=== PATIENT | female | born 1950 | race Two or more races ===

== ENCOUNTER 2018-01-05 10:12 | Outpatient (CLI) | payer OTHER ==
[~2018-01-05 10:12] MED LIST: CALTRATE 600600 MG PO; PROTONIX20 MG PO
== END 2018-01-05 10:17 | disposition home or self-care (01) ==
LOC: MAMO-SONO 10:12
DX: N63.10 Unspecified lump in the right breast, unspecified quadrant (principal); N63.20 Unspecified lump in the left breast, unspecified quadrant; R52 Pain, unspecified; M54.6 Pain in thoracic spine

== ENCOUNTER → 2018-02-02 | Emergency (ER) | payer OTHER ==
[~2018-02-02] VITALS: Ht 160 cm; Wt 63.5 kg
== END | disposition home or self-care (01) ==
LOC: ER 21:05
DX: S70.02XA Contusion of left hip, initial encounter (principal); S90.32XA Contusion of left foot, initial encounter; S80.12XA Contusion of left lower leg, initial encounter; S93.402A Sprain of unspecified ligament of left ankle, initial encounter; W10.9XXA Fall (on) (from) unspecified stairs and steps, initial encounter; Y93.89 Activity, other specified; Y92.89 Other specified places as the place of occurrence of the external cause; Y99.8 Other external cause status

== ENCOUNTER → 2018-05-17 | Outpatient (CLI) | payer OTHER | END | disposition home or self-care (01) | LOC: NUCLEAR 09:37 | DX: I65.21 Occlusion and stenosis of right carotid artery (principal) ==

== ENCOUNTER 2018-05-24 11:19 | Outpatient (CLI) | payer OTHER | END 2018-05-24 17:12 | disposition home or self-care (01) | LOC: NUCLEAR 11:19 | DX: M81.0 Age-related osteoporosis without current pathological fracture (principal) ==

== ENCOUNTER 2018-07-13 11:28 | Outpatient (CLI) | payer OTHER | END 2018-07-13 11:30 | disposition home or self-care (01) | LOC: SONOGRAMA 11:28 | DX: E04.8 Other specified nontoxic goiter (principal) ==

== ENCOUNTER 2018-07-23 07:30 | Outpatient (CLI) | payer OTHER | END 2018-07-23 07:33 | disposition home or self-care (01) | LOC: SONOGRAMA 07:30 → MAMO-SONO 07:45 | DX: R94.5 Abnormal results of liver function studies (principal) ==

== ENCOUNTER 2018-08-09 08:01 | Outpatient (CLI) | payer OTHER | END 2018-08-09 08:08 | disposition home or self-care (01) | LOC: SONOGRAMA 08:01 | DX: E04.1 Nontoxic single thyroid nodule (principal) ==

== ENCOUNTER 2018-11-14 10:24 | Emergency (ER) | payer OTHER ==
[~2018-11-14] VITALS: Ht 157.5 cm; Wt 63.5 kg
[2018-11-14] MEDS ORDERED: PRAVACHOL80 MG (10:56)
[2018-11-14] MEDS ORDERED: TRAMADOL HCL50 MG (10:56)
== END 2018-11-14 12:53 | disposition home or self-care (01) ==
LOC: ER 10:24
DX: N39.0 Urinary tract infection, site not specified (principal); R10.32 Left lower quadrant pain; M54.5 Low back pain

== ENCOUNTER 2019-05-18 20:40 | Emergency (ER) | payer OTHER ==
[~2019-05-18] VITALS: Ht 160 cm; Wt 64.0 kg
[~2019-05-18 20:40] MED LIST changes: +PRAVACHOL80 MG; +TRAMADOL HCL50 MG
== END 2019-05-18 22:32 | disposition home or self-care (01) ==
LOC: ER 20:40
DX: M54.2 Cervicalgia (principal); M54.6 Pain in thoracic spine; M62.830 Muscle spasm of back; S13.8XXS Sprain of joints and ligaments of other parts of neck, sequela; X58.XXXS Exposure to other specified factors, sequela

== ENCOUNTER → 2019-07-26 | Outpatient (CLI) | payer OTHER | END | disposition home or self-care (01) | LOC: RAD 11:59 | DX: M15.0 Primary generalized (osteo)arthritis (principal) ==

== ENCOUNTER 2019-10-04 12:08 | Emergency (ER) | payer OTHER ==
[~2019-10-04] VITALS: Ht 160 cm; Wt 61.2 kg
== END 2019-10-04 15:00 | disposition home or self-care (01) ==
LOC: ER 12:08
DX: B34.9 Viral infection, unspecified (principal)

== ENCOUNTER 2019-10-12 14:22 | Outpatient (CLI) | payer OTHER | END 2019-10-12 14:32 | disposition home or self-care (01) | LOC: MAMO-SONO 14:22 | DX: Z12.31 Encounter for screening mammogram for malignant neoplasm of breast (principal); Z87.898 Personal history of other specified conditions; N63.10 Unspecified lump in the right breast, unspecified quadrant; N63.20 Unspecified lump in the left breast, unspecified quadrant ==

== ENCOUNTER 2019-10-21 10:12 | Outpatient (CLI) | payer OTHER | END 2019-10-21 10:24 | disposition home or self-care (01) | LOC: NUCLEAR 10:12 | DX: M81.0 Age-related osteoporosis without current pathological fracture (principal) ==

== ENCOUNTER 2020-07-23 14:02 | Outpatient (CLI) | payer OTHER | END 2020-07-23 14:06 | disposition home or self-care (01) | LOC: LAB 14:02 | PROVIDERS: ATTEND Internal Medicine | DX: E06.0 Acute thyroiditis (principal) ==

== ENCOUNTER → 2020-08-08 | Outpatient (CLI) | payer OTHER | END | disposition home or self-care (01) | LOC: NUCLEAR 10:20 | PROVIDERS: ATTEND Internal Medicine | DX: I65.23 Occlusion and stenosis of bilateral carotid arteries (principal) ==

== ENCOUNTER → 2021-01-09 | Emergency (ER) | payer OTHER ==
[~2021-01-09] VITALS: Ht 157.5 cm; Wt 59.0 kg
[~2021-01-09] MED LIST changes: +PRAVASTATIN SOD10 MG PO
== END | disposition designated cancer center or children's hospital (05) ==
LOC: ER 16:30
DX: I61.9 Nontraumatic intracerebral hemorrhage, unspecified (principal); R20.2 Paresthesia of skin; R47.89 Other speech disturbances

== ENCOUNTER 2021-12-09 10:14 | Outpatient (CLI) | payer OTHER | END 2021-12-09 10:25 | disposition home or self-care (01) | LOC: MAMO-SONO 10:14 | PROVIDERS: ATTEND Internal Medicine | DX: Z12.31 Encounter for screening mammogram for malignant neoplasm of breast (principal); N63.0 Unspecified lump in unspecified breast ==

== ENCOUNTER 2021-12-09 11:55 | Outpatient (CLI) | payer OTHER | END 2021-12-09 12:00 | disposition home or self-care (01) | LOC: NUCLEAR 11:55 | PROVIDERS: ATTEND Internal Medicine | DX: M81.0 Age-related osteoporosis without current pathological fracture (principal) ==

== ENCOUNTER 2022-05-30 19:51 | Emergency (ER) | payer OTHER ==
[~2022-05-30] VITALS: Ht 162.6 cm; Wt 65.3 kg
== END 2022-05-30 23:09 | disposition home or self-care (01) ==
LOC: ER 19:51
DX: S52.502A Unspecified fracture of the lower end of left radius, initial encounter for closed fracture (principal); W18.30XA Fall on same level, unspecified, initial encounter; Y93.9 Activity, unspecified; Y92.019 Unspecified place in single-family (private) house as the place of occurrence of the external cause; Z88.6 Allergy status to analgesic agent; Z91.013 Allergy to seafood

== ENCOUNTER 2023-09-29 11:47 | Emergency (ER) | payer OTHER ==
[~2023-09-29] VITALS: Ht 160 cm; Wt 56.2 kg
[2023-09-29] MEDS ORDERED: ATORVASTATIN CA20 MG PO (13:03)
== END 2023-09-29 22:52 | disposition home or self-care (01) ==
LOC: ER 11:48
DX: S39.82XA Other specified injuries of lower back, initial encounter (principal); W06.XXXA Fall from bed, initial encounter; Y93.89 Activity, other specified; Y92.013 Bedroom of single-family (private) house as the place of occurrence of the external cause; Z88.6 Allergy status to analgesic agent; Z86.73 Personal history of transient ischemic attack (TIA), and cerebral infarction without residual deficits; Z91.013 Allergy to seafood; E05.80 Other thyrotoxicosis without thyrotoxic crisis or storm

== ENCOUNTER 2023-10-23 10:42 | Outpatient (CLI) | payer OTHER ==
[~2023-10-23 10:42] MED LIST changes: +ATORVASTATIN CA20 MG PO
== END 2023-10-23 10:45 | disposition home or self-care (01) ==
LOC: RAD 10:42
PROVIDERS: ATTEND Physical Medicine & Rehabilitation
DX: M94.0 Chondrocostal junction syndrome [Tietze] (principal); M54.6 Pain in thoracic spine

== ENCOUNTER 2023-11-18 13:47 | Outpatient (CLI) | payer OTHER | END 2023-11-18 13:49 | disposition home or self-care (01) | LOC: RAD 13:47 | PROVIDERS: ATTEND Internal Medicine | DX: R10.2 Pelvic and perineal pain (principal); G89.29 Other chronic pain ==

== ENCOUNTER 2023-11-19 11:51 | Outpatient (CLI) | payer OTHER | END 2023-11-19 11:58 | disposition home or self-care (01) | LOC: TOM 11:51 | PROVIDERS: ATTEND Orthopaedic Surgery | DX: M25.552 Pain in left hip (principal); M46.1 Sacroiliitis, not elsewhere classified ==

== ENCOUNTER 2023-12-15 10:32 | Outpatient (CLI) | payer OTHER | END 2023-12-15 10:34 | disposition home or self-care (01) | LOC: RAD 10:32 | PROVIDERS: ATTEND Orthopaedic Surgery | DX: S72.145D Nondisplaced intertrochanteric fracture of left femur, subsequent encounter for closed fracture with routine healing (principal) ==

== ENCOUNTER 2023-12-18 13:09 | Outpatient (CLI) | payer OTHER | END 2023-12-18 13:11 | disposition home or self-care (01) | LOC: NUCLEAR 13:09 | PROVIDERS: ATTEND Orthopaedic Surgery | DX: M81.0 Age-related osteoporosis without current pathological fracture (principal) ==